=== PATIENT | female | born 2000 | race Caucasian/White ===

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

== ENCOUNTER 2022-01-18 23:55 | Emergency (ER) | payer OTHER ==
[~2022-01-18 23:55] MED LIST changes: +BACLOFEN 10MG T10 MG PO; +NAPROXEN500 MG PO
== END 2022-01-19 01:58 | disposition home or self-care (01) ==
LOC: FER 23:55
DX: T65.891A Toxic effect of other specified substances, accidental (unintentional), initial encounter (principal); T26.41XA Burn of right eye and adnexa, part unspecified, initial encounter; Y92.89 Other specified places as the place of occurrence of the external cause; Y99.0 Civilian activity done for income or pay
CPT/HCPCS: 99283; J1885